=== PATIENT | female | born 1990 | race Caucasian/White ===

== ENCOUNTER 2016-06-07 07:46 | Inpatient (IN) | payer OTHER ==
[~2016-06-07] VITALS: Ht 182.9 cm; Wt 75.0 kg
[2016-06-07] MEDS ORDERED: OXYTOCIN 30U/ 0.9% NaCL 500ML 500 ML IV ONE (08:37)
[2016-06-07] MEDS: D5%-LACTATED RINGERS 1,000 ML IV SCH ×2 (08:37→16:37)
[2016-06-07] MEDS ORDERED: PLEASE ENTER HEIGHT AND WEIGHT MC SCH (09:00)
[2016-06-07] MEDS ORDERED: TERBUTALINE 1 MG/ML, 1ML IVPush PRN (09:00)
[2016-06-07] MEDS ORDERED: PLEASE ENTER ALLERGIES MC SCH ×2 (09:00)
[2016-06-07] MEDS ORDERED: FENTANYL PF 100 MCG/2ML IV PRN (09:00)
[2016-06-07] MEDS ORDERED: FENTANYL PF 100 MCG/2ML IVPush PRN (09:00)
[2016-06-07] MEDS ORDERED: ONDANSETRON 2MG/ML, 2ML IVPush PRN (09:00)
[2016-06-07] MEDS: LACTATED RINGERS 1,000 ML IV SCH ×6 (09:10→17:31)
[2016-06-07] MEDS ORDERED: LIDOCAINE 1%, 20ML ONE (09:26)
[2016-06-07] MEDS ORDERED: MISOPROSTOL 200 MCG TABLET ONE (09:26)
[2016-06-07] MEDS ORDERED: OXYTOCIN 30U/ 0.9% NaCL 500ML 500 ML ONE (09:27)
[2016-06-07] MEDS ORDERED: NEWBORN KIT ONE (09:27)
[2016-06-07] MEDS ORDERED: FENTANYL/BUPIV./NS/PF 250 ML EPIDCONT SCH (09:31)
[2016-06-07] MEDS ORDERED: PREN1TAB10 PO (09:50)
[2016-06-07 09:56] LABS: HEMOGLOBIN 12.8 g/dL (11.7-16.4)
[2016-06-07] MEDS ORDERED: LACTATED RINGERS 1,000 ML IVBOLUS PRN (10:00)
[2016-06-07] MEDS ORDERED: FENTANYL PF 100 MCG/2ML ONE ×2 (10:36→10:54)
[2016-06-07] MEDS ORDERED: BUPIVACAINE 0.25% ONE (10:54)
[2016-06-07] MEDS: OXYTOCIN 30U/ 0.9% NaCL 500ML 500 ML IV SCH (18:18)
[2016-06-07] MEDS ORDERED: OXYcodone/APAP 5/325MG TABLET ONE (18:18)
[2016-06-07] MEDS ORDERED: IBUPROFEN 600 MG TABLET ONE (18:18)
[2016-06-07] MEDS: OXYcodone/APAP 5/325MG TABLET PO PRN (18:24)
[2016-06-07] MEDS: IBUPROFEN 600 MG TABLET PO PRN (18:24)
[2016-06-07] MEDS ORDERED: ACETAMINOPHEN 325 MG TABLET PO PRN (18:30)
[2016-06-07] MEDS ORDERED: OXYcodone/APAP 5/325MG TABLET PO PRN (18:30)
[2016-06-07] MEDS ORDERED: ONDANSETRON 2MG/ML, 2ML IV PRN (18:30)
[2016-06-07] MEDS ORDERED: METHYLERGONOVINE 0.2 MG/ML IM PRN (18:30)
[2016-06-07] MEDS ORDERED: MISOPROSTOL 200 MCG TABLET PR PRN (18:30)
[2016-06-07 21:00] VITALS: BP 112/67
[2016-06-07 23:41] VITALS: BP 115/68
[2016-06-08] MEDS: IBUPROFEN 600 MG TABLET PO PRN ×4 (02:56→23:32)
[2016-06-08] MEDS: OXYcodone/APAP 5/325MG TABLET PO PRN ×5 (02:56→21:33)
[2016-06-08 03:07] LABS: HEMOGLOBIN 12.3 g/dL (11.7-16.4)
[2016-06-08] MEDS: OXYTOCIN 30U/ 0.9% NaCL 500ML 500 ML IV SCH (04:18)
[2016-06-08 04:40] VITALS: BP 106/67
[2016-06-08] MEDS ORDERED: IBUP-1222 PO (05:21)
[2016-06-08 06:33] VITALS: BP 124/70
[2016-06-08 07:57] VITALS: BP 113/74
[2016-06-08] MEDS: PRENATAL VIT/IRON/FA 1 EACH TABLET PO SCH (09:16)
[2016-06-08] MEDS: DOCUSATE 100 MG CAPSULE PO PRN ×2 (09:16→21:33)
[2016-06-08 12:00] VITALS: BP 125/69
[2016-06-08] MEDS ORDERED: OXYC-302 PO (15:36)
[2016-06-08 21:00] VITALS: BP 128/81
[2016-06-08] MEDS ORDERED: DIPH,PERTUSS(ACELL),TET VAC/PF NC IM-VACC ONE (21:30)
[2016-06-08 23:58] VITALS: BP 124/77
[2016-06-09] MEDS: IBUPROFEN 600 MG TABLET PO PRN (05:42)
[2016-06-09] MEDS: OXYcodone/APAP 5/325MG TABLET PO PRN ×3 (05:42→12:28)
[2016-06-09 08:00] VITALS: BP 116/68
[2016-06-09] MEDS: PRENATAL VIT/IRON/FA 1 EACH TABLET PO SCH (10:15)
[2016-06-09] MEDS: DOCUSATE 100 MG CAPSULE PO PRN (10:15)
== END 2016-06-09 17:29 | disposition home or self-care (01) | DRG 775 ==
LOC: LDOP 07:46 → LDIP 08:37 → 2NW 20:30
PROVIDERS: ADMIT Obstetrics & Gynecology; ATTEND Obstetrics & Gynecology
PROC: 10E0XZZ Delivery of Products of Conception, External Approach (ICD-10-PCS; principal; 2016-06-07)
PROC: 10907ZC Drainage of Amniotic Fluid, Therapeutic from Products of Conception, Via Natural or Artificial Opening (ICD-10-PCS; 2016-06-07)
PROC: 00HU33Z Insertion of Infusion Device into Spinal Canal, Percutaneous Approach (ICD-10-PCS; 2016-06-07)
PROC: 3E0R3CZ (ICD-10-PCS; 2016-06-07)
DX: O80 Encounter for full-term uncomplicated delivery (principal); Z37.0 Single live birth; Z3A.38 38 weeks gestation of pregnancy
CPT/HCPCS: 36415; 82803; 85025; 86850; 86900; 90715; J3010; J7120